=== PATIENT | male | born 2000 | race Caucasian/White ===

== ENCOUNTER 2023-02-07 15:40 | Emergency (ER) | payer MEDICAID, SELFPAY ==
[2023-02-07 15:45] VITALS: BP 131/95; PULSE 120; TEMP 36.5; O2SAT 100; BMI 31.2
--- NOTE | 2023-02-07 16:02 | CRLHL7_ITS ---
For Patients: As a result of the Cures Act, medical imaging exams and procedure reports are released immediately into your electronic medical record. You may view this report before your referring provider. If you have questions, please contact your health care provider. INDICATION: IV drug user. TECHNIQUE: Ultrasound venous duplex upper left extremity. Compression venous exam was performed using giraldo scale, color Doppler, and spectral Doppler imaging. COMPARISON: FINDINGS: The left internal jugular, subclavian, and axillary veins are patent with normal waveforms. The brachial, basilic, and ulnar veins are fully compressible. Nonocclusive thrombus in superficial cephalic vein. No soft tissue abnormalities seen. Normal appearance muscles are demonstrated. No definite abscess. IMPRESSION: No evidence for deep vein thrombosis. Superficial thrombus in the cephalic vein. Dictated by Paty Thompson MD @ 02/07/2023 6:41:33 PM (Electronically Signed)
--- NOTE | 2023-02-07 16:05 | ED_ITS ---
HPI - General Adult General Chief complaint: Extremity Pain/Injury, Upper Stated complaint: Swelling in Arm Time Seen by Provider: 02/07/23 15:50 History of Present Illness HPI narrative: This 22-year-old male comes in with pain and swelling in his left arm. He had someone inject methamphetamines directly into his vein in the left antecubital area 4 days ago. Since then he has developed worsening pain with erythema extending proximally and distally with a firm tender palpable lump in the area of the site where the drug was injected. He arrives with normal temperature and does not report any fevers. He does have tachycardia with heart rate at around 120. He states that he has been through treatment before and stopped using meth and fed a means for a while but now is resumed. He states this is the 1st time that he has had it injected into his vein. He denies using any other street drugs. Related Data Previous Rx's Medication Instructions Recorded apixaban 5 mg (74 tabs) tablets in See Rx Instructions PO .COMPLEX 02/07/23 a dose pack (Znaptag DVT-PE Treat #74 ea 30D Start) Allergies Allergy/AdvReac Type Severity Reaction Status Date / Time iv contrast Allergy Intermediate Uncoded 02/07/23 15:49 Review of Systems Status of ROS: Reports: 10 or more systems reviewed and unremarkable except as noted in History and below Narrative: Constitutional: No fevers, no weight gain or loss. Eyes: No discharge. No vision changes. HENT: No congestion, no sore throat, no ear pain. Cardiovascular: No chest pain, no palpitations. Respiratory: No shortness of breath, no wheezes, no cough. Gastrointestinal: No abdominal pain, no vomiting, no diarrhea. Genitourinary: No dysuria, no hematuria. Musculoskeletal: Normal range of motion. Left upper arm pain, redness, and swelling. Skin: No rashes, no pruritis. Neurological: No dizziness, weakness, sensory change, speech change. Endo/Heme/Allergies: No bruising or bleeding. No polydipsia. Pysch: no suicidality, no anxiety, no insomnia. All other systems reviewed and are negative. PFS PFS Social History Smoking Status: Current every day smoker How often do you have a drink containing alcohol: never AUDIT-C Alcohol total score: 0 Non-prescribed substance use: amphetamines/methamphetamines Exam Narrative: Exam Narrative: Constitutional: Well-developed, well-nourished, no acute distress. HEENT: Normocephalic, atraumatic. Neck: Normal range of motion. Nontender. Supple. Heart: Regular. No murmurs. Tachycardia. Intact distal pulses. Lungs: Clear to auscultation. No chest discomfort. No wheezes, rhonchi, or rales. Abdomen: Normal bowel sounds. Nontender. No rebound tenderness. Genitalia: Deferred. Back: No midline tenderness. Normal range of motion. Extremities: Normal range of motion. Left upper extremity has erythema on the medial aspect extending proximally and distally from a firm lump in the antecubital fossa. Skin: Intact. No rash. Warm. No erythema or pallor. Neurologic: No altered sensation. No weakness. Alert and oriented. Psychiatric: No suicidality. No anxiety or depression. No insomnia. Nursing notes and vitals signs are reviewed. Const: Vital Signs, click to edit/add: Vital Signs - 24 hr 02/07/23 15:45 Temperature 97.7 F Pulse Rate [Pulse Oximeter] 120 H Blood Pressure [Ri ght Upper Arm] 131/95 H Pulse Oximetry 100 Oxygen Delivery Me thod Room Air Course Vital Signs Vital signs: Initial Vital Signs Temperature 97.7 F 02/07/23 15:45 Temperature Source Temporal Artery Scan 02/07/23 15:45 Pulse Rate 120 H 02/07/23 15:45 Blood Pressure 131/95 H 02/07/23 15:45 Blood Pressure Mean 107 H 02/07/23 15:45 Blood Pressure Position Supine 02/07/23 15:45 Pulse Oximetry 100 02/07/23 15:45 Oxygen Delivery Method Room Air 02/07/23 15:45 Vital Signs Temperature 97.7 F 02/07/23 15:45 Pulse Rate 120 H 02/07/23 15:45 Blood Pressure 131/95 H 02/07/23 15:45 Pulse Oximetry 100 02/07/23 15:45 Oxygen Delivery Method Room Air 02/07/23 15:45 Temperature 97.7 F 02/07/23 15:45 Pulse Rate 120 H 02/07/23 15:45 Blood Pressure 131/95 H 02/07/23 15:45 Pulse Oximetry 100 02/07/23 15:45 Oxygen Delivery Method Room Air 02/07/23 15:45 Medical Decision Making MDM Narrative Medical decision making narrative: This 22-year-old male comes in with pain in his left arm where he had someone i nject methamphetamine 4 days ago. He has erythema extending proximally and distally and has a firm palpable lump in the antecubital fossa. Ultrasound imaging does show evidence of a blood clot in this area. There is no evidence of clot extending proximally. An IV was established and blood cultures obtained. Labs returned with an elevated white count at around 15,000. His lactate level is in normal range. After blood cultures were obtained the patient did receive a dose of Zosyn. He was also given 10 mg of Eliquis. The patient's vital signs are in normal range. His heart rate was initially elevated but this has normalized. He did receive a L of fluids intravenously. The patient wishes to return home and can be managed with outpatient antibiotic and anticoagulant therapies. He did received prescription for Eliquis and Augmentin. I did advise him regarding signs and symptoms that would indicate a need for return and re-evaluation. He should follow-up with his primary physic marisol for ongoing plans for anticoagulation. Lab Data Labs: Lab Results 02/07/23 Range/Units 16:30 WBC 15.68 H (4.50-11.00) K/uL RBC 5.44 (4.30-5.90) m/uL Hgb 15.8 (13.5-17.5) gm/dL Hct 46.1 (37.0-53.0) % MCV 85 (80-100) fL MCH 29 (26-34) pg MCHC 34 (32-36) gm/dL RDW Coeff of Anastasiya 13.1 (11.5-15.5) % Plt Count 465 H (140-440) K/uL Neut % (Auto) 74.8 H (42.0-72.0) % Lymph % (Auto) 14.7 L (20-44) % [place] % (Auto) 9.3 (0.0-11.0) % Eos % (Auto) 0.6 (0.0-7.0) % Baso % (Auto) 0.2 (0.0-3.0) % Neut # (Auto) 11.70 H (1.7-7.0) K/uL Lymph # (Auto) 2.30 (0.90-2.90) K/uL [place] # (Auto) 1.50 H (0.00-0.90) K/UL Eos # (Auto) 0.10 (0.00-0.50) K/uL Baso # (Auto) 0.00 (0.00-0.30) K/uL Sodium 141 (135-149) mmol/L Potassium 3.8 (3.6-5.1) mmol/L Chloride 104 (96-114) mmol/L Carbon Dioxide 29 (20-32) mmol/L BUN 11 (5-24) mg/dL Creatinine 0.7 (0.5-1.5) mg/dL Estimated Creat Clear 178.60 Estimated GFR 132 ml/min Glucose 101 (60-115) mg/dL Lactate 1.7 (0.5-1.9) mmol/L Calcium 9.4 (8.4-10.6) mg/dL Discharge Plan Discharge Clinical Impression: Deep venous thrombosis, Cellulitis, Active intravenous drug use Patient Disposition: Home, Self-Care Condition: Unchanged Additional Instructions: Take medication as prescribed. Follow up with primary physician in 1-2 weeks for ongoing management. Return to emergency department if worsening symptoms occur. Prescriptions: New Eliquis DVT-PE Treat 30D Start 5 mg (74 tabs) tablets,dose pack See Rx Instructions PO .COMPLEX Qty: 74 0RF Rx Instructions: orally per package directions Follow Up/Referrals: Ludy Pickens PA-C [Referring] - Stand Alone Forms: MyHealth Info Instructions
[2023-02-07 16:39] LABS: Lactate* 1.7 mmol/L (0.5-1.9)
[2023-02-07 16:42] LABS: Basophils Percent Auto 0.2 % (0.0-3.0); Eosinophils Percent Auto 0.6 % (0.0-7.0); Hematocrit 46.1 % (37.0-53.0); Hemoglobin* 15.8 gm/dL (13.5-17.5); Immature Granulocytes Pct Auto 0.4 %; Lymphocytes Percent Auto 14.7 % (20-44); Mean Corpuscular HGB Conc 34 gm/dL (32-36); Mean Corpuscular Hemoglobin 29 pg (26-34); Mean Corpuscular Volume 85 fL (80-100); Monocytes Percent Auto 9.3 % (0.0-11.0); Neutrophils Percent Auto 74.8 % (42.0-72.0); Platelet Count* 465 K/uL (140-440); RDW Coefficient of Variation % 13.1 % (11.5-15.5); Red Blood Count 5.44 m/uL (4.30-5.90); Slide Review Reflex No; White Blood Count* 15.68 K/uL (4.50-11.00)
[2023-02-07] MEDS: PIPERACILLIN/TAZOBACTAM 3.375 GM in 0.9 % SODIUM CHLORIDE Mini-bag 100 ML IVPB (16:49)
[2023-02-07] MEDS: 0.9 % SODIUM CHLORIDE 1000 ml 1,000 ML IV (16:49)
[2023-02-07 16:54] LABS: Chloride* 104 mmol/L (96-114)
[2023-02-07 16:55] LABS: Potassium* 3.8 mmol/L (3.6-5.1); Sodium* 141 mmol/L (135-149)
[2023-02-07 16:57] LABS: Creatinine* 0.7 mg/dL (0.5-1.5); Estimated Glomerular Filt Rate 132 ml/min
[2023-02-07 16:58] LABS: Blood Urea Nitrogen* 11 mg/dL (5-24); Calcium* 9.4 mg/dL (8.4-10.6); Carbon Dioxide* 29 mmol/L (20-32); Glucose* 101 mg/dL (60-115)
[2023-02-07] MEDS: APIXABAN 5 MG TABLET 10 MG PO (18:00)
== END 2023-02-07 18:01 | disposition home or self-care (01) ==
PROVIDERS: Emergency Provider Emergency Medicine Emergency Medical Services
DX: L03.114 Cellulitis of left upper limb (principal); T80.29XA Infection following other infusion, transfusion and therapeutic injection, initial encounter; F15.10 Other stimulant abuse, uncomplicated
CPT/HCPCS: 36415; 80048; 83605; 85025; 87040; 93971; 96365; 99284; A9270; J2543; J7030